=== PATIENT | female | born 2000 | race Two or more races ===

== ENCOUNTER 2022-10-05 15:51 | Emergency (ER) | payer OTHER ==
[~2022-10-05] VITALS: Ht 157.5 cm; Wt 56.7 kg
[2022-10-05] MEDS ORDERED: ALLEGRA ALLERGY60 MG PO (16:26)
== END 2022-10-05 21:22 | disposition home or self-care (01) ==
LOC: ER 15:51
DX: U07.1 COVID-19 (principal); R05.9 Cough, unspecified; Z3A.15 15 weeks gestation of pregnancy